=== PATIENT | female | born 1990 | race Caucasian/White ===

== ENCOUNTER 2019-07-05 16:43 | Emergency (ER) | payer OTHER ==
[~2019-07-05] VITALS: Ht 167.6 cm; Wt 52.6 kg
[2019-07-05] MEDS ORDERED: PRIMACARE SOFT1 EACH PO (16:55)
== END 2019-07-05 19:57 | disposition home or self-care (01) ==
LOC: ER 16:43
DX: O23.32 Infections of other parts of urinary tract in pregnancy, second trimester (principal); Z3A.17 17 weeks gestation of pregnancy

== ENCOUNTER 2019-09-22 05:52 | Outpatient (CLI) | payer OTHER ==
[~2019-09-22 05:52] MED LIST: PRIMACARE SOFT1 EACH PO
[2019-09-22] MEDS ORDERED: NIFE60TA3 PO (06:21)
[2019-09-22] MEDS ORDERED: VISTARIL25 MG PO (06:22)
== END 2019-09-22 13:25 | disposition home or self-care (01) ==
LOC: OBS/DEL 05:52
DX: O26.893 Other specified pregnancy related conditions, third trimester (principal); R10.2 Pelvic and perineal pain; R51 Headache; O35.8XX0 Maternal care for other (suspected) fetal abnormality and damage, not applicable or unspecified

== ENCOUNTER 2019-11-18 20:59 | Inpatient (IN) | payer OTHER ==
[~2019-11-18] VITALS: Ht 170.2 cm; Wt 2.7 kg
[~2019-11-18 20:59] MED LIST changes: +NIFE60TA3 PO; +VISTARIL25 MG PO
== END 2019-11-22 15:37 | disposition home or self-care (01) | DRG 788 ==
LOC: LDR 20:59 → OB/GYN 20:59
PROVIDERS: ADMIT Obstetrics & Gynecology
PROC: 4A1HXCZ Monitoring of Products of Conception, Cardiac Rate, External Approach (ICD-10-PCS; 2019-11-18)
PROC: 3E033VJ Introduction of Other Hormone into Peripheral Vein, Percutaneous Approach (ICD-10-PCS; 2019-11-19)
PROC: 10D00Z1 Extraction of Products of Conception, Low, Open Approach (ICD-10-PCS; principal; 2019-11-19 08:00)
DX: O82 Encounter for cesarean delivery without indication (principal); O61.0 Failed medical induction of labor; Z3A.36 36 weeks gestation of pregnancy; Z37.0 Single live birth

== ENCOUNTER → 2021-02-11 | Outpatient (CLI) | payer OTHER | END | disposition home or self-care (01) | LOC: PRENATAL 14:00 | PROVIDERS: ATTEND Obstetrics & Gynecology Maternal & Fetal Medicine | DX: O35.0XX1 Maternal care for (suspected) central nervous system malformation in fetus, fetus 1 (principal); O35.3XX1 Maternal care for (suspected) damage to fetus from viral disease in mother, fetus 1; O98.512 Other viral diseases complicating pregnancy, second trimester; Z36.89 Encounter for other specified antenatal screening; Z3A.19 19 weeks gestation of pregnancy ==

== ENCOUNTER → 2021-04-15 | Outpatient (CLI) | payer OTHER | END | disposition home or self-care (01) | LOC: PRENATAL 13:00 | PROVIDERS: ATTEND Obstetrics & Gynecology Maternal & Fetal Medicine | DX: O26.843 Uterine size-date discrepancy, third trimester (principal); Z36.89 Encounter for other specified antenatal screening; Z3A.30 30 weeks gestation of pregnancy ==